=== PATIENT | female | born 1980 | race Caucasian/White ===

== ENCOUNTER 2016-11-12 20:05 | Inpatient (IN) | payer OTHER ==
[2016-11-12] MEDS ORDERED: EPSOM SALT 454 GM TP PRN (20:18)
[2016-11-12] MEDS ORDERED: OLIVE OIL 118 ML BTL MISC PRN (20:18)
[2016-11-12] MEDS ORDERED: LR 1,000 ML IV PRN (20:18)
[2016-11-12] MEDS ORDERED: TERBUTALINE SULFATE 1 MG/ML VIAL IV PRN (20:18)
[2016-11-12] MEDS ORDERED: LIDOCAINE 1% 30 ML SDV SC PRN (20:18)
[2016-11-12] MEDS ORDERED: OXYTOCIN/RINGERS LACTATE 1,000 ML IV PRN (20:18)
[2016-11-12] MEDS ORDERED: LIDOCAINE 1% 30 ML SDV ONE (20:32)
[2016-11-12] MEDS ORDERED: OXYTOCIN 10 UNIT/ML VIAL ONE (20:33)
[2016-11-12] MEDS ORDERED: MISOPROSTOL 200 MCG TAB ONE (20:33)
[2016-11-12] MEDS ORDERED: TERBUTALINE SULFATE 1 MG/ML VIAL ONE (20:33)
[2016-11-12] MEDS ORDERED: OLIVE OIL 118 ML BTL ONE (20:33)
[2016-11-12] MEDS ORDERED: AMMONIA AROMATIC 1 EACH AMP IH ONE (20:33)
[2016-11-12 21:11] LABS: % IMMATURE GRANULYOCYTES 0.9 % (0.0-1.1); ABSOLUTE IMMATURE GRANULOCYTES 0.14 10^3/uL (0.00-0.10); ADD DIFF? NO; ADD MORPH? NO; ADD SCAN? NO; ATYPICAL LYMPHOCYTE FLAG 0 (0-99); FRAGMENT RBC FLAG 0 (0-99); HEMATOCRIT 39.9 % (38.0-47.0); HEMOGLOBIN 14.4 g/dL (12.6-16.3); LEFT SHIFT FLG 0 (0-99); LIPEMIA HEMOLYSIS FLAG 90 (0-99); MEAN CELL HEMOGLOBIN 32.5 pg (27.9-34.1); MEAN CELL HEMOGLOBIN CONCENTR. 36.1 g/dL (32.4-36.7); MEAN CELL VOLUME 90.1 fL (81.5-99.8); MEAN PLATELET VOLUME 10.2 fL (8.7-11.7); PLATELET CLUMPS FLAG 10 (0-99); PLATELET COUNT 199 10^3/uL (150-400); RED BLOOD CELL COUNT 4.43 10^6/uL (4.18-5.33); RED CELL DISTRIBUTION WIDTH 13.6 % (11.5-15.2)
--- NOTE | 2016-11-12 21:47 | GHP ---
[f rep st] HISTORY AND PHYSICAL DATE OF ADMISSION: 11/12/2016 ADMITTING DIAGNOSIS: 36-year-old, 2, para 1-0-0-1, at 40 weeks 0 days, presents complaining of contractions. HISTORY OF PRESENT ILLNESS: Patient states contractions started last night around 3 a.m., were regular, have increased in strength and intensity since approximately 5 p.m. today. complicated by advanced maternal age, mild anemia, and low-lying placenta, resolved. Estimated due date 11/12/2016, by L equals 7-week ultrasound. PAST MEDICAL HISTORY: Denies. PAST SURGICAL HISTORY: Denies. MEDICATIONS: vitamins. ASA 81mg for history of preeclampsia, patient states she stopped taking this a few months ago. ALLERGIES: No known drug allergies. FOOD HANDLER HISTORY: Abnormal Pap in 2008, normal since. Denies history of STDs. SOCIAL HISTORY: . at bedside. 1-2 alcoholic beverages per week. Denies tobacco or illicit drug use. FAMILY HISTORY: Noncontributory. OB HISTORY: Vaginal delivery 11/2012, 8-pound 3-ounce female, full term, complicated by mild PIH and chorio. LABS: A positive, antibody negative, HIV negative, hepatitis B negative, syphilis negative, rubella immune, gonorrhea/chlamydia negative, GBS negative. Elevated 1 hour GTT, followed by a 3-hour GTT within normal limits. Verifi genetic screening negative. PHYSICAL EXAMINATION: VITAL SIGNS: Stable. GENERAL APPEARANCE: Alert and oriented x3. HEART: Rate regular. LUNGS: Clear to auscultation bilaterally. ABDOMEN: Gravid, nontender. SVE 6 to 7/100/-1, intact. position cephalic. heart tracing category 2. heart tones 150, with moderate variability, positive accelerations, occasional variable decelerations , with return to baseline. Contractions every 3 minutes. ASSESSMENT: 36-year-old, 2, para 1-0-0-1, at 40 weeks 0 days, presents in active labor. PLAN: Admit orders. Pain management as requested, Patient interested in nitrous oxide. Expectant management. Anticipate . [place], attending /[id number]/MODL MTDD
[2016-11-12] MEDS ORDERED: HYDROCODONE/APAP 5/325 TAB PO PRN (22:55)
[2016-11-12] MEDS ORDERED: HYDROCORTISONE 0.5% CREAM TP PRN (22:55)
[2016-11-12] MEDS ORDERED: ACETAMINOPHEN 325 MG TAB PO PRN (22:55)
[2016-11-12] MEDS ORDERED: SIMETHICONE 80 MG TAB CHEW PO PRN (22:55)
--- NOTE | 2016-11-12 23:01 | OBPROC ---
- Labor and Delivery Onset of Contractions Date: 11/12/16 Onset of Contractions Time: 17:30 Onset of Contractions Type: Spontaneous Rupture of Membranes Date: 11/12/16 Rupture of Membranes Time: 21:00 Rupture of Membranes Type: Spontaneous Amniotic Fluid Color: Clear Dilation Complete Time: 21:33 Delivery Type: Spontaneous Placenta Delivery Date: 11/12/16 Placenta Delivery Time: 22:11 Episiotomy/Laceration: 2nd Degree, Perineal Repair: 3-0, Vicryl EBL: 300 Complications: Nuchal Cord (x1) - Medications Labor Augmentation/Induction Meds Used: None Anesthesia: Local (Specify) (Lidocaine 1%), Other (Specify) (Nitrous Oxide) - [place] Info Infant A Delivery Date: 11/12/16 Delivery Time: 22:06 Sex of Infant: Female Score (1 Min): 8 Score (5 Min): 9
[2016-11-12] MEDS: IBUPROFEN 600 MG TAB PO PRN (23:29)
[2016-11-13 05:41] VITALS: O2SAT 95
[2016-11-13] MEDS: IBUPROFEN 600 MG TAB PO PRN ×3 (06:09→18:45)
[2016-11-13 07:44] LABS: ALANINE AMINOTRANSFERASE 22 IU/L (9-52); ALBUMIN 2.9 g/dL (3.5-5.0); ALKALINE PHOSPHATASE 90 IU/L (38-126); ANION GAP 7 mEq/L (8-16); ASPARTATE AMINOTRANSFERASE 27 IU/L (14-46); BILIRUBIN,TOTAL 0.7 mg/dL (0.1-1.4); BILIRUBIN-CONJUGATED 0.3 mg/dL (0.0-0.5); BILIRUBIN-UNCONJUGATED 0.4 mg/dL (0.0-1.1); CALCIUM 8.4 mg/dL (8.5-10.4); CARBON DIOXIDE 19 mEq/l (22-31); CHLORIDE 110 mEq/L (97-110); CREATININE 0.6 mg/dL (0.6-1.0); GLOMERULAR FILTRATION RATE > 60; GLUCOSE 89 mg/dL (70-100); POTASSIUM 3.9 mEq/L (3.5-5.2); SODIUM 136 mEq/L (134-144); TOTAL PROTEIN 5.5 g/dL (6.3-8.2)
--- NOTE | 2016-11-13 08:58 | OBPROG ---
OBG Progress Note Assessment/Plan: Assessment: s/p PPD # 1 - pt is stable Plan: Continue routine pp care Encourage ambulation Plan for d/c home in am 11/1411/13/16 08:55 Subjective: Pt seen and examined. Doing well with no complaints. Minimal cramping. Moderate lochia. She is OOB, jamel regular diet, voiding and passing flatus. with some difficulty-wants to consult with . Objective: 11/12/16 20:51 11/13/16 06:55 Patient ABO/Rh A POSITIVE 11/12/16 20:51 Uric Acid 5.0 mg/dL (2.5-6.8) 11/13/16 06:55 Total Bilirubin 0.7 mg/dL (0.1-1.4) 11/13/16 06:55 Conjugated Bilirubin 0.3 mg/dL (0.0-0.5) 11/13/16 06:55 Unconjugated Bilirubin 0.4 mg/dL (0.0-1.1) 11/13/16 06:55 AST 27 IU/L (14-46) 11/13/16 06:55 ALT 22 IU/L (9-52) 11/13/16 06:55 Temp Pulse Resp BP Pulse Ox 37.1 C 110 H 18 129/69 H 95 11/13/16 02:15 11/13/16 02:15 11/13/16 02:15 11/13/16 02:15 11/13/16 02:15 Uterine Position/Fundal Height: Umbilicus -2 Uterine Tone: Firm - Physical Exam General Appearance: WD/WN, alert, no apparent distress Respiratory: lungs clear, normal breath sounds Cardiac/Chest: regular rate, rhythm Abdomen: normal bowel sounds, non-tender, soft, flatus (+) Genitourinary: laceration (intact), lochia (moderate) Extremities: non-tender, normal inspection Neuro/Psych: alert, normal mood/affect, oriented x 3 ICD10 Worksheet Patient Problems: Problems Problem Status Onset Active labor at term Acute (spontaneous vaginal delivery) Acute
[2016-11-13] MEDS: DOCUSATE SODIUM 100 MG CAP PO PRN (09:27)
[2016-11-14] MEDS: IBUPROFEN 600 MG TAB PO PRN ×2 (04:49→11:07)
--- NOTE | 2016-11-14 09:46 | SOAPPROG ---
SOAP Progress Note Assessment/Plan: Assessment: 36y/o day 2 s/p 11/12/16 Plan: Discharge to home Disc precautions, warning s/s RTC @ 2 & 6wks 11/14/16 09:43 Subjective: Pt resting comfortably with infant . Pt reports going well. Pain well-controlled. Voiding without difficulty. Passing flatus , no BM. Lochia light. Tolerating regular diet. Objective: Vital Signs Temp Pulse Resp BP Pulse Ox 36.5 C 74 20 101/59 L 95 11/13/16 20:00 11/13/16 20:00 11/13/16 20:00 11/13/16 20:00 11/13/16 20:00 Laboratory Results 11/12/16 20:51 11/13/16 06:55 11/13/16 11/14/16 11/15/16 05:59 05:59 05:59 Output Total 300 Balance -300 Physical Exam - Physical Exam General Appearance: alert, no apparent distress Respiratory: lungs clear, normal breath sounds Cardiac/Chest: regular rate, rhythm Abdomen: non-tender, soft Pelvic Exam: vaginal bleeding (lochia light), other (fundus firm @U-1) Skin: normal color, warm/dry Extremities: normal range of motion, non-tender, pedal edema (trace BLE edema) Neuro/Psych: alert, normal mood/affect, oriented x 3 ICD10 Worksheet Patient Problems: Problems Problem Status Onset Active labor at term Acute (spontaneous vaginal delivery) Acute
[2016-11-14] MEDS: DOCUSATE SODIUM 100 MG CAP PO PRN (11:07)
[2016-11-14 11:33] VITALS: BP 117/69; PULSE 83; RESP 18; TEMP 97.6
== END 2016-11-14 12:15 | disposition home or self-care (01) | DRG 775 ==
LOC: FLD 20:05 → OBSVTOIN 20:19 → FOB 11-13 00:04
PROVIDERS: ADMIT Advanced Practice Midwife; ATTEND Obstetrics & Gynecology
DX: O70.1 Second degree perineal laceration during delivery (principal); O69.81X0 Labor and delivery complicated by cord around neck, without compression, not applicable or unspecified; O77.0 Labor and delivery complicated by meconium in amniotic fluid; O09.523 Supervision of elderly multigravida, third trimester; Z3A.40 40 weeks gestation of pregnancy; Z37.0 Single live birth
CPT/HCPCS: J2590; J3105

== ENCOUNTER → 2016-12-17 | Outpatient (CLI) | payer OTHER | LOC: FLACT 14:36 | PROVIDERS: ATTEND Obstetrics & Gynecology | DX: Z39.1 Encounter for care and examination of lactating mother (principal) | CPT/HCPCS: G0463 ==

== ENCOUNTER → 2016-12-27 | Outpatient (CLI) | payer OTHER | LOC: FLACT 12:55 | PROVIDERS: ATTEND Obstetrics & Gynecology | DX: O92.79 Other disorders of lactation (principal) | CPT/HCPCS: G0463 ==